=== PATIENT | female | born 1975 | race Hispanic/Latino ===

== ENCOUNTER 2017-12-02 17:29 | Emergency (ER) | payer SELFPAY ==
[2017-12-02] MEDS ORDERED: IBUPROFEN 400 MG TAB ONE (18:27)
--- NOTE | 2017-12-02 19:00 | RAD REPORT ---
EXAM DESCRIPTION: RAD - Ankle Right 3 View - 12/02/2017 6:52 pm CLINICAL HISTORY: Right ankle pain status post injury FINDINGS: No fracture or dislocation is seen. Soft tissue swelling is present
--- NOTE | 2017-12-02 19:02 | RAD REPORT ---
EXAM DESCRIPTION: RAD - Foot Right 3 View - 12/02/2017 6:49 pm CLINICAL HISTORY: Right foot pain status post injury FINDINGS: No fracture or dislocation is seen
--- NOTE | 2017-12-02 19:16 | ER ---
Nurse's Notes [facility] Name: Daisha Dawkins Age: 42 yrs Sex: Female : 1975 Arrival Date: 12/02/2017 Time: 17:33 Bed 15 Private MD: Diagnosis: Sprain of ankle-Right Presentation: 12/02 17:36 Presenting complaint: Patient states: "rolled my ankle yesterday". pt c/o swelling and aa5 pain to right ankle. Transition of care: patient was not received from another setting of care. Onset of symptoms was November 2017. Risk Assessment: Do you want to hurt yourself or someone else? Patient reports no desire to harm self or others. Initial Sepsis Screen: Does the patient meet any 2 criteria? No. Patient's initial sepsis screen is negative. Does the patient have a suspected source of infection? No. Patient's initial sepsis screen is negative. Care prior to arrival: None. 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 - Social history:: Smoking status: Patient/guardian denies using tobacco. - Ebola Screening: : No symptoms or risks identified at this time. Screenin:00 Abuse screen: Denies threats or abuse. Denies injuries from another. Nutritional jl7 screening: No deficits noted. Tuberculosis screening: No symptoms or risk factors identified. Fall Risk Fall in past 12 months (25 points). Total Pandey Fall Scale indicates Low Risk Score (25-44 pts). Fall prevention measures have been instituted. Side Rails Up X 2 Placed close to Nursing Station Frequent Obs/Assesments occuring As available Patient and Family Educated on Fall Prevention Program and strategies. Assessment: 18:00 General: Appears in no apparent distress. uncomfortable, Behavior is calm, cooperative, jl7 appropriate for age. Pain: Complains of pain in right ankle Pain currently is 8 out of 10 on a pain scale. Neuro: Level of Consciousness is awake, alert, obeys commands. Cardiovascular: Patient's skin is warm and dry. Respiratory: Airway is patent Respiratory effort is even, unlabored, Respiratory pattern is regular, symmetrical. Derm: Skin is pink, warm \\T\\ dry. 19:20 Reassessment: Patient appears in no apparent distress at this time. Patient and/or tl2 family updated on plan of care and expected duration. Pain level reassessed. Patient is alert, oriented x 3, equal unlabored respirations, skin warm/dry/pink. Pt verbalized understanding of discharge instructions, need for follow up, prescription usage and use of air cast and crutches. Vital Signs: 17:38 BP 124 / 81; Pulse 69; Resp 16 S; Temp 98.4(TE); Pulse Ox 97% on R/A; Weight 89.36 kg aa5 (R); Height 5 ft. 7 in. (170.18 cm) (R); Pain 7/10; 17:38 Body Mass Index 30.85 (89.36 kg, 170.18 cm) aa5 ED Course: 17:33 Patient arrived in ED. ds1 17:37 Triage completed. aa5 17:37 Arm band placed on. aa5 17:40 Aydin Maki, RN is Primary Nurse. jl7 17:43 Aashish Senior PA is PHCP. cp 17:43 Virgil Pro MD is Attending Physician. cp 18:00 Patient has correct armband on for positive identification. Bed in low position. Call jl7 light in reach. Side rails up X 1. Pulse ox on. NIBP on. 18:00 No provider procedures requiring assistance completed. jl7 18:48 XRAY Foot RIGHT 3 View In Process Unspecified. EDMS 18:48 XRAY Ankle RIGHT 3 view In Process Unspecified. EDMS 18:59 Primary Nurse role handed off by Aydin Maki RN jl7 19:13 Korey Chadwick MD is Referral Physician. cp 19:20 Raeann Zapata RN is Primary Nurse. tl2 19:20 Patient did not have IV access during this emergency room visit. tl2 Administered Medications: 18:23 Drug: Ibuprofen 800 mg Route: PO; jl7 19:30 Follow up: Response: No adverse reaction; Pain is decreased tl2 Outcome: 19:15 Discharge ordered by . cp 19:20 Discharged to home via wheelchair, with family. tl2 19:20 Condition: stable 19:20 Discharge instructions given to patient, Instructed on discharge instructions, follow up and referral plans. medication usage, crutch walking, Demonstrated understanding of instructions, follow-up care, medications, crutch walking, splint care, Prescriptions given X 1. 19:31 Patient left the ED. tl2 Signatures: Dispatcher [employer] [facility] Priscilla Toribio ds1 Paola Reid RN RN aa5 Aashish Senior PA PA cp Knox, Taylor RN RN tl2 Aydin Maki RN RN jl7
--- NOTE | 2017-12-02 19:16 | EDPHYS ---
Physician Documentation [facility] Name: Daisha Dawkins Age: 42 yrs Sex: Female : 1975 Arrival Date: 12/02/2017 Time: 17:33 Bed 15 Private MD: ED Physician Virgil Pro HPI: 12/02 18:20 This 42 yrs old Female presents to ER via Wheelchair with complaints of Foot cp Swelling. 18:20 The patient presents with an injury, pain, that is acute. The complaints affect the cp right ankle and right foot. 18:20 Context: The problem was sustained at home, resulted from a mis-step, the patient can cp fully bear weight, the patient is able to ambulate. Onset: The symptoms/episode began/occurred yesterday. Associated signs and symptoms: Pertinent positives: tingling, Pertinent negatives calf tenderness, fever, warmth. 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 - Social history:: Smoking status: Patient/guardian denies using tobacco. - Ebola Screening: : No symptoms or risks identified at this time. ROS: 18:25 Constitutional: Negative for body aches, chills, fever. cp 18:25 Eyes: Negative for injury, pain, redness, and discharge. cp 18:25 Cardiovascular: Negative for chest pain, palpitations. 18:25 Respiratory: Negative for cough, shortness of breath, wheezing. 18:25 Abdomen/GI: Negative for abdominal pain, nausea, vomiting, and diarrhea. 18:25 MS/extremity: Positive for pain, paresthesias, swelling, tenderness, of the right ankle and right foot. 18:25 Skin: Negative for cellulitis, rash. 18:25 All other systems are negative. Exam: 18:30 Constitutional: The patient appears in no acute distress, alert, awake, non-toxic, well cp developed, well nourished. 18:30 Head/Face: Normocephalic, atraumatic. cp 18:30 Eyes: Periorbital structures: appear normal, Conjunctiva: normal, no exudate, no injection, Lids and lashes: appear normal, bilaterally. 18:30 ENT: External ear(s): are unremarkable, Nose: is normal, Mouth: Lips: moist, Oral mucosa: moist, Posterior pharynx: is normal, airway is patent. 18:30 Neck: ROM/movement: is normal, without pain, no range of motions limitations. 18:30 Chest/axilla: Inspection: normal. 18:30 Cardiovascular: Rate: normal. 18:30 Respiratory: the patient does not display signs of respiratory distress, Respirations: normal, no use of accessory muscles, no retractions, no splinting, no tachypnea. 18:30 Abdomen/GI: Exam negative for discomfort, distension, guarding, Inspection: abdomen appears normal. 18:30 Back: pain, is absent, ROM is normal. 18:30 Musculoskeletal/extremity: Extremities: grossly normal except: noted in the right ankle and right foot: ecchymosis, swelling, tenderness, There is no evidence of deformity, Perfusion: the extremity is normally perfused throughout, Tingling of extremity. 18:30 Skin: cellulitis, is not appreciated, no rash present. Vital Signs: 17:38 BP 124 / 81; Pulse 69; Resp 16 S; Temp 98.4(TE); Pulse Ox 97% on R/A; Weight 89.36 kg aa5 (R); Height 5 ft. 7 in. (170.18 cm) (R); Pain 7/10; 17:38 Body Mass Index 30.85 (89.36 kg, 170.18 cm) aa5 Procedures: 19:30 Splinting: Splint applied to right ankle using Air Cast, applied by nurse. Examined by cp me, post splint application: neurovascular intact, Patient tolerated well. 19:30 Crutch training provided to patient and/or family. Return demonstration given. cp MDM: 17:43 Patient medically screened. cp 18:00 Differential diagnosis: dislocation, closed fracture, tendonitis, sprain. cp 19:10 Data reviewed: vital signs, nurses notes, radiologic studies, plain films. cp 19:10 Test interpretation: by ED physician or midlevel provider: plain radiologic studies. cp Counseling: I had a detailed discussion with the patient and/or guardian regarding: the historical points, exam findings, and any diagnostic results supporting the discharge/admit diagnosis, radiology results. Response to treatment: the patient's symptoms have mildly improved after treatment, and as a result, I will discharge patient. 12/02 18:19 Order name: XRAY Foot RIGHT 3 View cp 12/02 18:19 Order name: XRAY Ankle RIGHT 3 view cp 12/02 19:06 Order name: Crutches; Complete Time: 19:30 cp 12/02 19:06 Order name: Aircast Ankle Splint; Complete Time: 19:30 cp 12/02 19:06 Order name: Alex Wrap; Complete Time: 19:30 cp Administered Medications: 18:23 Drug: Ibuprofen 800 mg Route: PO; jl7 19:30 Follow up: Response: No adverse reaction; Pain is decreased tl2 Disposition: 12/03 09:24 Co-signature as Attending Physician, Virgil Pro MD I agree with the assessment and kdr plan of care. Disposition: 12/02/17 19:15 Discharged to Home. Impression: Sprain of ankle - Right. - Condition is Stable. - Discharge Instructions: Ankle Sprain. - Prescriptions for Naprosyn 500 mg Oral Tablet - take 1 tablet by ORAL route 2 times per day take with food; 20 tablet. - Medication Reconciliation Form, Thank You Letter, Antibiotic Education, Prescription Opioid Use form. - Follow up: Korey Chadwick MD; When: 5 - 6 days; Reason: swelling and pain continues. - Problem is new. - Symptoms have improved. Signatures: Dispatcher [employer] EDMS Virgil Pro MD MD kdr Paola Reid RN RN aa5 Aashish Senior PA PA cp Raeann Zapata RN RN tl2 Aydin Maki RN RN jl7 Corrections: (The following items were deleted from the chart) 12/02 19:31 19:15 12/02/2017 19:15 Discharged to Home. Impression: Sprain of ankle - Right. tl2 Condition is Stable. Forms are Medication Reconciliation Form, Thank You Letter, Antibiotic Education, Prescription Opioid Use. Follow up: Korey Chadwick; When: 5 - 6 days; Reason: swelling and pain continues. Problem is new. Symptoms have improved. cp
== END 2017-12-02 19:31 | disposition home or self-care (01) ==
LOC: ER 17:29
DX: S93.401A Sprain of unspecified ligament of right ankle, initial encounter (principal); X58.XXXA Exposure to other specified factors, initial encounter; Y93.89 Activity, other specified; Y92.009 Unspecified place in unspecified non-institutional (private) residence as the place of occurrence of the external cause
CPT/HCPCS: 99284

== ENCOUNTER 2020-04-17 22:31 | Emergency (ER) | payer SELFPAY ==
--- OUTSIDE RECORDS SUMMARY | 2020-04-17 22:32 | XMS REPORT | Continuity of Care Document ---
:1975 Author Organization [facility] t Address [facility] [place] [id number] Care Team Providers Name Role Phone Unavailable Unavailable Unavailable Problems This patient has no known problems. Allergies, Adverse Reactions, Alerts This patient has no known allergies or adverse reactions. Medications This patient has no known medications. Procedures This patient has no known procedures. Results This patient has no known results.
[2020-04-18 00:07] LABS: Absolute Lymphocytes (CBC) 1.2 K/uL (0.7-4.9); Basophils % 0.4 % (0-1.3); Hematocrit 40.9 % (36.0-45.0); Lymphocytes % 9.4 % (15.3-44.8); MPV 8.9 fL (7.6-11.3); RBC Red Blood Cell Count 4.63 M/uL (3.86-4.86)
[2020-04-18 00:08] LABS: Protime INR 1.04
[2020-04-18] MEDS ORDERED: NA CHLORIDE 0.9% 1,000 ML ONE (00:10)
[2020-04-18 00:18] LABS: Urine Blood 1+ (NEG); Urine Glucose NEGATIVE (NEG); Urine Protein NEGATIVE (NEG); Urine Specific Gravity 1.015 (1.005-1.030)
[2020-04-18 00:35] LABS: ALT/SGPT 51 U/L (12-78); Albumin 3.6 g/dL (3.4-5.0); Alkaline Phosphatase 95 U/L (45-117); BUN Blood Urea Nitrogen 9 mg/dL (7-18); Bicarbonate 24 mmol/L (21-32); Bilirubin Direct < 0.1 mg/dL (0-0.2); Bilirubin Total 0.4 mg/dL (0.2-1.0); Glucose Level 108 mg/dL (74-106); Lipase 121 U/L (73-393); NT PRO-BNP 40 pg/mL (<125); Protein, Total 8.1 g/dL (6.4-8.2); Sodium Level 143 mmol/L (136-145); Troponin (Emerg Dept Use Only) < 0.02 ng/mL (0.0-0.045)
[2020-04-18 00:36] LABS: AST/SGOT 37 U/L (15-37); Magnesium 2.1 mg/dL (1.8-2.4); Potassium 3.7 mmol/L (3.5-5.1)
[2020-04-18 01:47] LABS: SARS-COV-2 RT PCR NEGATIVE (NEGATIVE)
[2020-04-18] MEDS ORDERED: dexAMETHasone 10 MG/ML VIAL ONE (01:56)
[2020-04-18] MEDS ORDERED: AZITHROMYCIN 500 MG INJ IVPB ONE (01:56)
[2020-04-18] MEDS ORDERED: METHYLPREDNISOLONE 125 MG INJ ONE (01:56)
[2020-04-18] MEDS ORDERED: FAMOTIDINE 20 MG/2 ML VIAL IV ONE (01:57)
[2020-04-18] MEDS ORDERED: NA CHLORIDE 0.9% 250 ML ONE (01:57)
[2020-04-18] MEDS ORDERED: CEFTRIAXONE/SWI 1gm 1 GM/10 ML SYR ONE (01:57)
--- NOTE | 2020-04-18 02:05 | EDPHYS ---
Physician Documentation [facility] Name: Daisha Dawkins Age: 44 yrs Sex: Female : 1975 Arrival Date: 04/17/2020 Time: 22:32 Bed 4 Private MD: ED Physician Aashish hTomson HPI: 04/17 23:22 This 44 yrs old Female presents to ER via Ambulatory with complaints of stephy Shortness Of Breath. 23:22 The patient has shortness of breath at rest, with light activity. Onset: The stephy symptoms/episode began/occurred 1 day(s) ago. Duration: The symptoms are continuous, and are steadily getting worse. The patient's shortness of breath has no apparent modifying factors. Associated signs and symptoms: Pertinent positives: chest pain, non-productive cough. Severity of symptoms: At their worst the symptoms were mild in the emergency department the symptoms are unchanged. The patient has not experienced similar symptoms in the past. 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 - Social history:: Smoking status: Patient denies any tobacco usage or history of. - Family history:: not pertinent. ROS: 23:22 Constitutional: Negative for fever, chills, and weight loss, Eyes: Negative for injury, stephy pain, redness, and discharge, ENT: Negative for injury, pain, and discharge, Neck: Negative for injury, pain, and swelling, Cardiovascular: Negative for chest pain, palpitations, and edema, Abdomen/GI: Negative for abdominal pain, nausea, vomiting, diarrhea, and constipation, Back: Negative for injury and pain, : Negative for injury, bleeding, discharge, and swelling, MS/Extremity: Negative for injury and deformity, Skin: Negative for injury, rash, and discoloration, Neuro: Negative for headache, weakness, numbness, tingling, and seizure, Psych: Negative for depression, anxiety, suicide ideation, homicidal ideation, and hallucinations, Allergy/Immunology: Negative for hives, rash, and allergies, Endocrine: Negative for neck swelling, polydipsia, polyuria, polyphagia, and marked weight changes. 23:22 Respiratory: Positive for cough, with no reported sputum. Exam: 23:22 Constitutional: This is a well developed, well nourished patient who is awake, alert, stephy and in no acute distress. Head/Face: Normocephalic, atraumatic. Eyes: Pupils equal round and reactive to light, extra-ocular motions intact. Lids and lashes normal. Conjunctiva and sclera are non-icteric and not injected. Cornea within normal limits. Periorbital areas with no swelling, redness, or edema. ENT: Nares patent. No nasal discharge, no septal abnormalities noted. Tympanic membranes are normal and external auditory canals are clear. Oropharynx with no redness, swelling, or masses, exudates, or evidence of obstruction, uvula midline. Mucous membranes moist. Neck: Trachea midline, no thyromegaly or masses palpated, and no cervical lymphadenopathy. Supple, full range of motion without nuchal rigidity, or vertebral point tenderness. No Meningismus. Chest/axilla: Normal chest wall appearance and motion. Nontender with no deformity. No lesions are appreciated. Cardiovascular: Regular rate and rhythm with a normal S1 and S2. No gallops, murmurs, or rubs. Normal PMI, no JVD. No pulse deficits. Abdomen/GI: Soft, non-tender, with normal bowel sounds. No distension or tympany. No guarding or rebound. No evidence of tenderness throughout. Back: No spinal tenderness. No costovertebral tenderness. Full range of motion. Skin: Warm, dry with normal turgor. Normal color with no rashes, no lesions, and no evidence of cellulitis. MS/ Extremity: Pulses equal, no cyanosis. Neurovascular intact. Full, normal range of motion. Neuro: Awake and alert, GCS 15, oriented to person, place, time, and situation. Cranial nerves II-XII grossly intact. Motor strength 5/5 in all extremities. Sensory grossly intact. Cerebellar exam normal. Normal gait. Psych: Awake, alert, with orientation to person, place and time. Behavior, mood, and affect are within normal limits. 23:22 Respiratory: mild respiratory distress is noted, Respirations: normal, Breath sounds: are clear throughout. 23:22 Abdomen/GI: Inspection: abdomen appears normal, Bowel sounds: normal, Palpation: nontender, Liver: no appreciated palpable abnormalities, Hernia: not appreciated. 23:49 ECG was reviewed by the Attending Physician. [facility] Vital Signs: 23:45 BP 134 / 101; Pulse 98; Resp 18; Pulse Ox 100% on R/A; rv 02/04 00:00 BP 125 / 85; Pulse 88; Resp 17; Pulse Ox 100% on R/A; rv 00:30 BP 122 / 80; Pulse 88; Resp 17; Pulse Ox 100% on R/A; rv 01:00 BP 134 / 80; Pulse 96; Resp 16; Pulse Ox 100% ; rv 02:19 BP 113 / 76; Pulse 90; Resp 18; Pulse Ox 98% on R/A; MDM: 04/17 23:15 Patient medically screened. stephy 23:25 Differential diagnosis: Anemia Bronchitis CHF exacerbation, Chronic Obstructive stephy Pulmonary Disease pneumonia, pulmonary edema, reactive airway disease. Antibiotic administration: Not indicated. The patient's Wells Deep Vein Thrombosis Score was calculated as follows: No Risks (0 Pts). The patient's pulmonary embolism risk score was calculated as follows: No Risks (0 Pts). Immunization status:. Data reviewed: vital signs, nurses notes, lab test result(s), EKG, radiologic studies, CT scan, plain films. Data interpreted: front desk monitor: rate is 85 beats/min, rhythm is regular, Pulse oximetry: on room air is 100 %. Test interpretation: by ED physician or midlevel provider: ECG, plain radiologic studies. Counseling: I had a detailed discussion with the patient and/or guardian regarding: the historical points, exam findings, and any diagnostic results supporting the discharge/admit diagnosis, lab results, radiology results, the need for outpatient follow up. 04/17 23:22 Order name: Basic Metabolic Panel [facility] 04/17 23:22 Order name: CBC with Diff [facility] 04/17 23:22 Order name: LFT's [facility] 04/17 23:22 Order name: Magnesium [facility] 04/17 23:22 Order name: NT PRO-BNP [facility] 04/17 23:22 Order name: PT-INR [facility] 04/17 23:22 Order name: Troponin (emerg Dept Use Only) [facility] 04/17 23:22 Order name: Lipase; Complete Time: 00:52 [facility] 04/17 23:22 Order name: Basic Metabolic Panel; Complete Time: 00:52 [facility] 04/17 23:22 Order name: CBC with Automated Diff; Complete Time: 00:19 [facility] 04/17 23:22 Order name: Liver (Hepatic) Function; Complete Time: 00:52 [facility] 04/17 23:22 Order name: Magnesium; Complete Time: 00:52 [facility] 04/17 23:22 Order name: NT PRO-BNP; Complete Time: 00:52 [facility] 04/17 23:22 Order name: XRAY Chest (1 view) [facility] 04/17 23:22 Order name: CT Chest For PE Angio [facility] 04/17 23:22 Order name: Protime (+INR); Complete Time: 00:19 [facility] 04/17 23:22 Order name: Troponin (Emerg Dept Use Only); Complete Time: 00:52 [facility] 04/17 23:52 Order name: Urine Dipstick--Ancillary (enter results) [facility] 04/17 23:52 Order name: Urine --Ancillary (enter results) [facility] 04/18 01:26 Order name: Blood Culture Adult (2) [facility] 04/18 01:47 Order name: COVID-19/FLU A+B [facility] 04/17 23:22 Order name: EKG; Complete Time: 23:23 [facility] 04/17 23:22 Order name: Cardiac monitoring; Complete Time: 23:52 [facility] 04/17 23:22 Order name: EKG - Nurse/Tech; Complete Time: 23:52 [facility] 04/17 23:22 Order name: IV Saline Lock; Complete Time: 23:52 [facility] 04/17 23:22 Order name: Labs collected and sent; Complete Time: 23:52 [facility] 04/17 23:22 Order name: O2 Per Protocol; Complete Time: 23:52 [facility] 04/17 23:22 Order name: O2 Sat Monitoring; Complete Time: 23:52 [facility] 04/17 23:22 Order name: Urine Dipstick-Ancillary (obtain specimen); Complete Time: 23:48 [facility] 04/17 23:22 Order name: Urine Test (obtain specimen); Complete Time: 23:48 [facility] EC:49 Rate is 91 beats/min. Rhythm is regular. QRS Harrah is Normal. IN interval is normal. QRS stephy interval is normal. QT interval is normal. No Q waves. T waves are Normal. No ST changes noted. Clinical impression: Normal ECG and No evidence of ischemia. Interpreted by me. Reviewed by me. Administered Medications: 23:52 Drug: NS 0.9% 1000 ml Route: IV; Rate: 1 bolus; Site: right antecubital; 04/18 03:18 Follow up: Response: No adverse reaction; IV Status: Completed infusion 01:31 Not Given (Duplicate Order): predniSONE 20 mg PO once stephy 01:55 Drug: SOLU-Medrol 125 mg Route: IVP; Site: right antecubital; 02:20 Follow up: Response: No adverse reaction 01:57 Drug: Rocephin 1 grams Route: IV; Rate: per protocol; Site: right antecubital; 02:20 Follow up: Response: No adverse reaction; IV Status: Completed infusion 01:59 Drug: Decadron - Dexamethasone 10 mg Route: IVP; Site: right antecubital; 02:20 Follow up: Response: No adverse reaction 02:01 Drug: Pepcid 20 mg Route: IVP; Site: right antecubital; 02:20 Follow up: Response: No adverse reaction 02:03 Drug: Zofran (Ondansetron) 4 mg Route: IVP; Site: right antecubital; 02:20 Follow up: Response: No adverse reaction; Nausea is decreased 02:05 Drug: Zithromax 500 mg Route: IVPB; Infused Over: 1 hrs; Site: right antecubital; 03:17 Follow up: Response: No adverse reaction; IV Status: Completed infusion Disposition: 04/18/20 02:05 Discharged to Home. Impression: Acute upper respiratory infection, unspecified, Dyspnea, Vomiting. - Condition is Stable. - Discharge Instructions: Shortness of Breath, Upper Respiratory Infection, Adult, Cool Mist Vaporizer, Shortness of Breath, Rxka-[id number], Upper Respiratory Infection, Adult, Agje-gk-Vydm, Cough, Adult, Rofr-gs-Cbbc, Aspirin and Your Heart. - Prescriptions for dexamethasone 2 mg Oral tablet - take 1 tablet by ORAL route 2 times per day; 10 tablet. Pepcid 20 mg Oral Tablet - take 1 tablet by ORAL route every 12 hours for 30 days; 60 tablet. Albuterol Sulfate 90 mcg/actuation - inhale 1-2 puff by INHALATION route every 4-6 hours; 1 Inhaler. Zithromax 500 mg Oral Tablet - take 1 tablet by ORAL route once daily for 5 days; 5 tablet. Zofran 4 mg Oral Tablet - take 1 tablet by ORAL route every 12 hours As needed; 20 tablet. - Medication Reconciliation Form, Thank You Letter, Antibiotic Education, Prescription Opioid Use form. - Follow up: Private Physician; When: 2 - 3 days; Reason: Recheck today's complaints, Continuance of care, Re-evaluation by your physician. Follow up: Michael Avila; When: 2 - 3 days; Reason: Recheck today's complaints, Re-evaluation by your physician. - Problem is new. - Symptoms have improved. Signatures: Dispatcher [employer] EDMO Talib Alcala RN RN sg Anderson, Corey, MD MD cha Habalo, Winsy, RN RN Corrections: (The following items were deleted from the chart) 00:40 02/03 23:23 CORONAVIRUS+MR.LAB.BRZ ordered. [facility] 04/18 01:30 01:27 CORONAVIRUS+MR.LAB.BRZ ordered. [facility] 01:32 01:27 Influenza Screen (A \T\ B)+BA.LAB.BRZ ordered. [facility] EDMO 03:17 02:05 04/18/2020 02:05 Discharged to Home. Impression: Acute upper respiratory wh infection, unspecified; Dyspnea; Vomiting. Condition is Stable. Discharge Instructions: Shortness of Breath, Upper Respiratory Infection, Adult, Cool Mist Vaporizer, Shortness of Breath, Ecme-ch-Mncz, Upper Respiratory Infection, Adult, Blmx-or-Zezk, Cough, Adult, Avca-be-Hrtj, Aspirin and Your Heart. Prescriptions for dexamethasone 2 mg Oral tablet - take 1 tablet by ORAL route 3 times per day; 15 tablet, Pepcid 20 mg Oral Tablet - take 1 tablet by ORAL route every 12 hours for 30 days; 60 tablet, Albuterol Sulfate 90 mcg/actuation - inhale 1-2 puff by INHALATION route every 4-6 hours; 1 Inhaler, Zithromax 500 mg Oral Tablet - take 1 tablet by ORAL route once daily for 5 days; 5 tablet, Zofran 4 mg Oral Tablet - take 1 tablet by ORAL route every 12 hours As needed; 20 tablet. and Forms are Medication Reconciliation Form, Thank You Letter, Antibiotic Education, Prescription Opioid Use. Follow up: Private Physician; When: 2 - 3 days; Reason: Recheck today's complaints, Continuance of care, Re-evaluation by your physician. Follow up: Michael Avila; When: 2 - 3 days; Reason: Recheck today's complaints, Re-evaluation by your physician. Problem is new. Symptoms have improved. stephy
--- NOTE | 2020-04-18 02:05 | ER ---
Nurse's Notes [facility] Name: Daisha Dawkins Age: 44 yrs Sex: Female : 1975 Arrival Date: 04/17/2020 Time: 22:32 Bed 4 Private MD: Diagnosis: Acute upper respiratory infection, unspecified;Dyspnea;Vomiting Presentation: 04/17 22:47 Chief complaint: Patient states: Having shortness of breath, reports worsens with sg ambulation, unsure of any fever at home, denies chills for triage, no other symptoms reported at this time. Coronavirus screen: shortness of breath, Client presents with at least one sign or symptom that may indicate coronavirus-19. Standard/surgical mask placed on the client. Provider contacted for isolation considerations. Ebola Screen: Patient negative for fever greater than or equal to 101.5 degrees Fahrenheit, and additional compatible Ebola Virus Disease symptoms Patient denies exposure to infectious person. Patient denies travel to an Ebola-affected area in the 21 days before illness onset. No symptoms or risks identified at this time. Initial Sepsis Screen: Does the patient meet any 2 criteria? No. Patient's initial sepsis screen is negative. Does the patient have a suspected source of infection? No. Patient's initial sepsis screen is negative. Risk Assessment: Do you want to hurt yourself or someone else? Patient reports no desire to harm self or others. Onset of symptoms was April 17, 2020. Care prior to arrival: None. Transition of care: patient was not received from another setting of care. 22:47 Method Of Arrival: Ambulatory sg 22:47 Acuity: AILYN 3 sg Triage Assessment: 23:00 Respiratory: Onset: The symptoms/episode began/occurred this morning, the patient wh reports symptoms have resolved. [employer]: 04/18 00:00 LMP N/A - Unknown wh Historical: - Allergies: 04/17 22:49 No Known Allergies; sg - PMHx: 22:49 None; sg - PSHx: 22:49 Cholecystectomy; Tubal ligation; sg - Immunization history:: Adult Immunizations up to date. - Social history:: Smoking status: Patient denies any tobacco usage or history of. - Family history:: not pertinent. Screenin:00 Abuse screen: Denies threats or abuse. Denies injuries from another. Nutritional wh screening: No deficits noted. Tuberculosis screening: No symptoms or risk factors identified. Fall Risk None identified. Assessment: 23:00 General: Appears in no apparent distress. Behavior is calm, cooperative, appropriate wh for age. Pain: Denies pain. Neuro: Level of Consciousness is awake, alert, obeys commands, Oriented to person, place, time, situation, Appropriate for age. Cardiovascular: Heart tones S1 S2 Rhythm is regular. Respiratory: Reports shortness of breath Airway is patent Respiratory effort is even, unlabored, Respiratory pattern is regular, symmetrical, Breath sounds are clear bilaterally. GI: Abdomen is flat, non-distended, Reports diarrhea, nausea. : No signs and/or symptoms were reported regarding the genitourinary system. EENT: No signs and/or symptoms were reported regarding the EENT system. Derm: Skin is intact, is healthy with good turgor, Skin is pink, warm \T\ dry. normal. Musculoskeletal: Circulation, motion, and sensation intact. 04/18 00:30 Reassessment: Patient appears in no apparent distress at this time. No changes from previously documented assessment. Patient and/or family updated on plan of care and expected duration. Pain level reassessed. Patient is alert, oriented x 3, equal unlabored respirations, skin warm/dry/pink. 02:00 Reassessment: Patient appears in no apparent distress at this time. Patient and/or family updated on plan of care and expected duration. Pain level reassessed. Patient is alert, oriented x 3, equal unlabored respirations, skin warm/dry/pink. 03:15 Reassessment: Patient appears in no apparent distress at this time. Patient and/or family updated on plan of care and expected duration. Pain level reassessed. Patient is alert, oriented x 3, equal unlabored respirations, skin warm/dry/pink. Vital Signs: 04/17 23:45 BP 134 / 101; Pulse 98; Resp 18; Pulse Ox 100% on R/A; rv 04/18 00:00 BP 125 / 85; Pulse 88; Resp 17; Pulse Ox 100% on R/A; rv 00:30 BP 122 / 80; Pulse 88; Resp 17; Pulse Ox 100% on R/A; rv 01:00 BP 134 / 80; Pulse 96; Resp 16; Pulse Ox 100% ; rv 02:19 BP 113 / 76; Pulse 90; Resp 18; Pulse Ox 98% on R/A; ED Course: 04/17 22:32 Patient arrived in ED. cl3 22:47 Arm band placed on. sg 22:49 Triage completed. sg 22:57 Sundeep Matt, RN is Primary Nurse. 23:00 Patient has correct armband on for positive identification. Placed in gown. Bed in low wh position. Call light in reach. Side rails up X 1. senior support analyst on. Pulse ox on. NIBP on. 23:00 No provider procedures requiring assistance completed. Inserted saline lock: 20 gauge wh in right antecubital area, using aseptic technique. Blood collected. 23:15 Aashish Thomson MD is Attending Physician. stephy 23:44 XRAY Chest (1 view) In Process Unspecified. EDMS 0204 01:03 CT Chest For PE Angio In Process Unspecified. EDMS 02:05 Michael Avila MD is Referral Physician. stephy 03:17 IV discontinued, intact, bleeding controlled, No redness/swelling at site. Administered Medications: 04/17 23:52 Drug: NS 0.9% 1000 ml Route: IV; Rate: 1 bolus; Site: right antecubital; 04/18 03:18 Follow up: Response: No adverse reaction; IV Status: Completed infusion 01:31 Not Given (Duplicate Order): predniSONE 20 mg PO once [facility] 01:55 Drug: SOLU-Medrol 125 mg Route: IVP; Site: right antecubital; 02:20 Follow up: Response: No adverse reaction 01:57 Drug: Rocephin 1 grams Route: IV; Rate: per protocol; Site: right antecubital; 02:20 Follow up: Response: No adverse reaction; IV Status: Completed infusion 01:59 Drug: Decadron - Dexamethasone 10 mg Route: IVP; Site: right antecubital; 02:20 Follow up: Response: No adverse reaction 02:01 Drug: Pepcid 20 mg Route: IVP; Site: right antecubital; 02:20 Follow up: Response: No adverse reaction 02:03 Drug: Zofran (Ondansetron) 4 mg Route: IVP; Site: right antecubital; 02:20 Follow up: Response: No adverse reaction; Nausea is decreased 02:05 Drug: Zithromax 500 mg Route: IVPB; Infused Over: 1 hrs; Site: right antecubital; 03:17 Follow up: Response: No adverse reaction; IV Status: Completed infusion Outcome: 02:05 Discharge ordered by . stephy 03:17 Discharged to home ambulatory. 03:17 Condition: stable 03:17 Discharge instructions given to patient, Instructed on discharge instructions, follow up and referral plans. medication usage, POC Demonstrated understanding of instructions, follow-up care, medications, POC Prescriptions given X X5 03:18 Patient left the ED. Signatures: Dispatcher [employer] EDMS Talib Alcala RN RN sg Anderson, Corey, MD MD cha Habalo, Winsy RN JESUS Santy Banegas RN RN Go Irvin cl3
[2020-04-18] MEDS ORDERED: ONDANSETRON 4 MG/2 ML VIAL ONE (02:12)
[2020-04-18 03:35] VITALS: BP 113/76; O2SAT 98
--- NOTE | 2020-04-18 07:43 | RAD REPORT ---
EXAM DESCRIPTION: [facility] Single View04/17/2020 11:44 pm CLINICAL HISTORY: Shortness of breath COMPARISON: none FINDINGS: The lungs appear clear of acute infiltrate. The heart is normal size IMPRESSION: No acute abnormalities displayed
--- NOTE | 2020-04-18 13:03 | RAD REPORT ---
EXAM DESCRIPTION: CT - Chest For Pe Angio - 04/18/2020 6:10 am CLINICAL HISTORY: The patient is 44 years old and is Female; Chest pain;Dyspnea TECHNIQUE: Axial computed tomographic angiography images of the chest with intravenous contrast. T his CT exam was performed using one or more of the following dose reduction techniques: automated e xposure control, adjustment of the mA and/or kV according to patient size, and/or use of iterative re construction technique. MIP reconstructed images were created and reviewed. Oblique reformatted images were created and reviewed. DLP: 390 mGy*cm COMPARISON: None. FINDINGS: PULMONARY ARTERIES: Unremarkable. No pulmonary embolism. AORTA: No acute findings. No thoracic aortic aneurysm. LUNGS: Mild interlobular septal thickening and groundglass opacities. PLEURAL SPACE: Unremarkable. No significant effusion. No pneumothorax. HEART: Unremarkable. No cardiomegaly. No significant pericardial effusion. No evidence of RV dysfunction. BONES/JOINTS: No acute fracture. No dislocation. SOFT TISSUES: Unremarkable. LYMPH NODES: Unremarkable. No enlarged lymph nodes. IMPRESSION: 1. No pulmonary embolism. 2. Mild interstitial edema. Infectious process could have similar imaging characteristics. Electronically signed by: Guerrero Leger DO 04/18/2020 1:17 AM [employer] Due to temporary technical issues with the PACS/Fluency reporting system, reports are being signed by the in house radiologists without review as a courtesy to insure prompt reporting. The interpreting radiologist is fully responsible for the content of the report.
== END 2020-04-18 03:18 | disposition home or self-care (01) ==
LOC: ER 22:31
DX: J06.9 Acute upper respiratory infection, unspecified (principal); R11.10 Vomiting, unspecified; Z20.822 Contact with and (suspected) exposure to COVID-19
CPT/HCPCS: 0240U; 36415; 71045; 71275; 80048; 80076; 81003; 81025; 83690; 83735; 83880; 84484; 85025; 85610; 87040; 87205; 93005; 96361; 96365; 96375; 99284; J0456; J0696; J1100; J2405; J2930; J7050; Q9967

== ENCOUNTER 2024-07-29 14:39 | Emergency (ER) | payer OTHER, SELFPAY ==
--- OUTSIDE RECORDS SUMMARY | 2024-07-29 14:42 | XMS REPORT | Continuity of Care Document ---
Author Name Unknown Address [address] [facility] [address] [place] [address] [facility] Address [address] [facility] [place] [address] Care Team Providers Care Reimbursement Specialist Name Role Phone Nery Daly Primary Care Physician Un available AZAEL DOMINGUEZ Attending Clinician ELPIDIO May Attending Clinician Unavailable MARCIAL JACKSON Attending Clinician Unavailable SURINDER YOUNG Attending Clinician Unavailab Regina MD Attending Clinician Unavailab coleman LINDSEY Attending Clinician Unavailable DIANNE LIU Attending Clinician Unavailable DONNA KENNY Attending Clinician Unavailable Donna Ga Attending Clinician [phone] DONNA KENNY Admitting Clinician Unavailable Payers Payer Name Policy Type Policy Number Effective Date Expirati on Date Source [employer] MP [employer] 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 ON STAND 9 [id number] 2022 00:00:00 [employer] 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[employer] OUT OF NETWORK [id number] 2022 00:00:00 Problems Condition Name Condition Details Condition Category Status Onset Date Resolution Date Last Treatment Date Treating Clinician Comments Source Screening examinatio n for STD (sexually transmitte d disease) Screening examinatio n for STD (sexually transmitte d disease) Disease Active 2017-03 00:00: 00 [facility] History of bilateral tubal ligation History of bilateral tubal ligation Disease Active 2017-03 00:00: 00 [facility] BMI 30.0-30.9, adult BMI 30.0-30.9, adult Disease Active 2017-03 00:00: 00 [facility] Obesity, unspecifie d classifica tion, unspecifie d obesity type, unspecifie d whether serious comorbidit y present Obesity, unspecifie d classifica tion, unspecifie d obesity type, unspecifie d whether serious comorbidit y present Disease Active 2017-03 00:00: 00 [facility] Allergies, Adverse Reactions, Alerts Allergy Name Allergy Type Status Severity Reaction(s) Onset Date Inactive Date Treating Clinician Comments Source NO KNOWN ALLERGIE S Drug Class Active [facility] Social History Social Habit Start Date Stop Date Quantity Comments Source Sexual orientation Aaron saludmarcus Sammi - External Alcohol intake 2022-12-10 00:00:00 2022-12-10 00:00:00 Lifetime non-drinker (finding) Ally Chapa - External History of Social function 2022-12-10 00:00:00 2022-12-10 00:00:00 Ally Chapa - External Tobacco use and exposure 2022-12-08 00:00:00 2022-12-08 00:00:00 Smokeless tobacco non-user Ally Chapa - External Sex Ass[birth year] At 1975 00:00:00 1975 00:00:00 Ally Chapa - External Smoking Status Start Date Stop Date Source Never smoked tobacco Ally Chapa - External Medications Ordered Medication Name Filled Medication Name Start Date Stop Date Current Medication? Ordering Clinician Indication Dosage Frequency Signature (SIG) Comments Components Source ondansetron (ZOFRAN (PF)) injection 4 mg 08-18 19:15: 00 08-18 19:27 :00 No 4mg 4 mg, Slow IV Push, ONCE, 1 dose, On Wed08/18/22 at 1415, BAR [facility] FENTanyl PF (SUBLIMAZE (PF)) injection 25 mcg 08-18 19:15: 00 08-18 19:27 :00 No 25ug 25 mcg, Slow IV Push, ONCE, 1 dose, On Wed08/18/22 at 1415, STAT [facility] iopamidol (ISOVUE 370-500 mL) injection 70 mL 08-18 18:39: 00 08-18 18:41 :00 No [id number] 70mL 70 mL, Intravenou s, ONCE, 1 dose, On Wed08/18/22 at 1400, Routine [facility] amoxicillin -clavulanat e 875-125 mg per tablet 08-18 00:00: 00 08-29 04:59 :00 No [id number] 1{tbl} Take 1 tablet by mouth every 12 (twelve) hours for 10 days. [facility] Immunizations Ordered Immunization Name Filled Immunization Name Date Status Comments Source Influenza, Injectable, Mdck, Quadrivalent With Preservative Unknown Completed Ally Chapa - External Vital Signs Vital Name Observation Time Observation Value Comments S ource Systolic blood pressure 2022-12-10 18:49:00 118 mm[Hg] Ally Blanco ld - External Diastolic blood pressure 2022-12-10 18:49:00 62 mm[Hg] Ally aparicio - External Heart rate 2022-12-10 18:49:00 74 /min Sandeep Chapa - External Body temperature 2022-12-10 18:49:00 36.61 Zo Ally Chapa - External Respiratory rate 2022-12-10 18:49:00 18 /min Ally Chapa - External Body height 2022-12-10 18:49:00 165.1 cm Jesenia Chapa - External Body weight 2022-12-10 18:49:00 90.039 kg Jesenia Chapa - External BMI 2022-12-10 18:49:00 33.03 kg/m2 Jesenia Chapa - External Oxygen saturation in Arterial blood by Pulse oximetry 2022-12-10 18:49:00 97 /min Ally aparicio - External Systolic blood pressure 2022-08-18 21:01:06 116 mm[Hg] [facility] Diastolic blood pressure 2022-08-18 21:01:06 83 mm[Hg] [facility] Heart rate 2022-08-18 21:01:06 77 /min [facility] Body temperature 2022-08-18 21:01:06 36.89 Zo [facility] Respiratory rate 2022-08-18 21:01:06 18 /min [facility] Body weight 2022-08-18 16:53:00 85.276 kg [facility] BMI 2022-08-18 16:53:00 30.34 kg/m2 [facility] Oxygen saturation in Arterial blood by Pulse oximetry 2022-08-18 16:53:00 99 /min [place] [facility] Procedures Procedure Date / Time Performed Performing Clinicia n Source CT ABDOMEN PELVIS W CONTRAST 2022-08-18 18:48:00 Donna Kenny [facility] LIPASE 2022-08-18 17:35:00 Donna Kenny [facility] COMP. METABOLIC PANEL ([id number]) 2022-08-18 17:35:00 Donna Kenny [facility] CBC WITH DIFF 2022-08-18 17:35:00 Donna Kenny [facility] URINALYSIS 2022-08-18 17:35:00 Donna Kenny [facility] ASSIGNMENT OF BENEFITS 2022-08-18 17:09:31 Docto r Unassigned, [place] [facility] NOTICE OF PRIVACY PRACTICES 2022-08-18 16:44:22 Doctor Unassigned, [place] [facility] CONSENT/REFUSAL FOR DIAGNOSIS AND TREATMENT 2022-08-18 16:43:43 Doctor Unassigned, [place] [facility] Encounters Start Date/Time End Date/Time Encounter Type Admission Type Attending [facility] Care Facility Care Department Encounter ID Source 2023-02-09 00:00:00 2023-02-09 00:00:00 Outpatient AZAEL DOMINGUEZ [id number] Ally Chapa 2023-02-03 10:45:00 2023-02-03 10:45:00 Outpatient ALLY MCCRARY [id number] Ally Chapa 2023-02-02 15:00:00 2023-02-02 15:00:00 Outpatient ELPIDIO CONN [id number] Ally [facility] 2023-01-29 11:30:00 2023-01-29 11:30:00 Outpatient MARCIAL JACKSON [facility] [id number] [facility] 2023-01-08 00:00:00 2023-01-08 00:00:00 Outpatient PAWAN DOMINGUEZAN [facility] [id number] [facility] 2023-01-06 11:15:00 2023-01-06 11:15:00 Outpatient ALLY MCCRARY [id number] Ally [facility] 2022-12-21 08:00:00 2022-12-21 08:00:00 Outpatient HECTORSURINDER [id number] [facility] 2022-12-11 00:00:00 2022-12-11 00:00:00 Outpatient MD ALLY MOMIN [id number] [facility] 2022-12-10 14:30:00 2022-12-10 14:30:00 Outpatient LAB90 ALLY [facility]CRARY [id number] [facility] 2022-12-10 14:00:00 2022-12-10 14:00:00 Outpatient ANGELICAAZAEL [facility]Y [facility] [id number] [facility] 2022-12-10 13:00:00 2022-12-10 13:00:00 Outpatient DIANNE LIU [facility] [id number] [facility] 2022-12-09 09:00:00 2022-12-09 09:00:00 Outpatient AZAEL DOMINGUEZ [id number] [facility] 2022-11-10 15:30:00 2022-11-10 15:30:00 Outpatient ANGELICA AZAEL [facility]Y [facility] [id number] Ally [facility] 2022-08-18 11:55:00 2022-08-18 16:02:00 Emergency X DONNA KENNY [facility] ERT [id number] [facility] 2022-08-18 11:55:00 2022-08-18 16:02:00 Emergency Donna Kenny [facility] [id number] [facility]
--- NOTE | 2024-07-29 15:15 | ER ---
Nurse's Notes [facility] Name: Daisha Dawkins Age: 49 yrs Sex: Female : 1975 Arrival Date: 07/29/2024 Time: 14:39 Bed 9 Private MD: Diagnosis: Allergic contact dermatitis due to plants, except food Presentation: 07/29 14:48 Chief complaint: Patient states: Rash to B arms with itching for 1 week. Started after ll1 clearing a tree with . Coronavirus screen: Client denies travel out of the [place] in the last 14 days. At this time, the client does not indicate any symptoms associated with coronavirus-19. Ebola Screen: Patient denies travel to an Ebola-affected area in the 21 days before illness onset. Initial Sepsis Screen: Does the patient meet any 2 criteria? No. Patient's initial sepsis screen is negative. Does the patient have a suspected source of infection? No. Patient's initial sepsis screen is negative. Risk Assessment: Do you want to hurt yourself or someone else? Patient reports no desire to harm self or others. Onset of symptoms was July 22, 2024. 14:48 Method Of Arrival: Ambulatory ll1 14:48 Acuity: AILYN 4 ll1 Triage Assessment: 14:53 General: Appears uncomfortable, Behavior is calm, cooperative, appropriate for age. ll1 Pain: Complains of pain in right arm and left arm Quality of pain is described as burning. Derm: Reports rash B arms with itching. Historical: - Allergies: 14:52 No Known Allergies; ll1 - Home Meds: 14:52 None [Active]; ll1 - PMHx: 14:52 None; ll1 - PSHx: 14:52 Cholecystectomy; ll1 - Immunization history:: Adult Immunizations up to date. - Infectious Disease History:: Denies. - Social history:: Smoking status: Patient denies any tobacco usage or history of. - Family history:: not pertinent. - Hospitalizations: : No recent hospitalization is reported. Screenin:34 [facility] ED Fall Risk Assessment (Adult) History of falling in the last 3 months, hb including since admission No falls in past 3 months (0 pts) Confusion or Disorientation No (0 pts) Intoxicated or Sedated No (0 pts) Impaired Gait No (0 pts) Mobility Assist Device Used No (0 pt) Altered Elimination No (0 pt) Score/Fall Risk Level 0 - 2 = Low Risk Oriented to surroundings, Maintained a safe environment, Educated pt \T\ family on fall prevention, incl call for assistance when getting out of bed. Abuse screen: Denies threats or abuse. Denies injuries from another. Nutritional screening: No deficits noted. Tuberculosis screening: No symptoms or risk factors identified. Assessment: 15:34 General: Appears in no apparent distress. Behavior is calm, cooperative. Neuro: GCS 15. hb Cardiovascular: Patient's skin is warm and dry. Respiratory: Respiratory effort is even, unlabored, Respiratory pattern is regular, symmetrical. Derm: Rash noted that is itchy, papular. Vital Signs: 14:48 BP 128 / 88; Pulse 77; Resp 17; Temp 97.6; Pulse Ox 95% ; Weight 90.72 kg; Height 5 ft. ll1 5 in. ; Pain 8/10; 14:48 Body Mass Index 33.28 (90.72 kg, 165.1 cm) ll1 14:48 Pain Scale: Adult ll1 ED Course: 14:43 Patient arrived in ED. al6 14:45 Zohaib Leal MD is Attending Physician. rn 14:49 Triage completed. ll1 14:49 Arm band placed on. ll1 15:26 Christal Tierney, JESUS is Primary Nurse. hb 15:34 Patient has correct armband on for positive identification. Call light in reach. hb Provided Education on: medications, follow up. 15:34 No provider procedures requiring assistance completed. Patient did not have IV access hb during this emergency room visit. Administered Medications: 15:33 Drug: MethylPREDNISolone Sodium Succinate IM 125 mg IM once Route: IM; Site: right hb deltoid; 15:34 Follow up: Response: Medication administered at discharge. hb 15:33 Drug: hydrOXYzine PO 50 mg PO once Route: PO; hb 15:34 Follow up: Response: Medication administered at discharge. Medication: 15:34 VIS not applicable for this client. hb Outcome: 15:15 Discharge ordered by . rn 15:34 Discharged to home ambulatory, hb 15:34 Condition: stable 15:34 Discharge instructions given to patient, Instructed on discharge instructions, follow up and referral plans. medication usage, Demonstrated understanding of instructions, follow-up care, medications, Prescriptions given X 2, 15:35 Patient left the ED. hb Signatures: Zohaib Leal MD MD rn Baxter, Heather, RN RN Dieter Salcido RN RN ll1 Tierney Motta6 Corrections: (The following items were deleted from the chart) 14:53 14:48 Resp 17bpm; ll1 ll1
--- NOTE | 2024-07-29 15:16 | EDPHYS ---
Physician Documentation [facility] Name: Daisha Dawkins Age: 49 yrs Sex: Female : 1975 Arrival Date: 07/29/2024 Time: 14:39 Bed 9 Private MD: ED Physician Zohaib Leal HPI: 07/29 14:52 This 49 yrs old Female presents to ER via Ambulatory with complaints of Rash - rn arms,hands and neck. 14:53 Patient reports rash to arms and neck and face for 1 week. Started shortly after rn clearing out a tree with her . Patient states saw some broad leaf wrapped around a tree. Patient reports itching and trying hydrocortisone cream as well as oatmeal creams and nothing is helping. Her 's rash has already gone away. No trouble breathing. Historical: - Allergies: 14:52 No Known Allergies; ll1 - Home Meds: 14:52 None [Active]; ll1 - PMHx: 14:52 None; ll1 - PSHx: 14:52 Cholecystectomy; ll1 - Immunization history:: Adult Immunizations up to date. - Infectious Disease History:: Denies. - Social history:: Smoking status: Patient denies any tobacco usage or history of. - Family history:: not pertinent. - Hospitalizations: : No recent hospitalization is reported. ROS: 14:53 Constitutional: Negative for fever, chills, and weight loss, Cardiovascular: Negative rn for chest pain, palpitations, and edema, Respiratory: Negative for shortness of breath, cough, wheezing, and pleuritic chest pain, Abdomen/GI: Negative for abdominal pain, nausea, vomiting, diarrhea, and constipation, MS/Extremity: Negative for injury and deformity, Skin: Positive for rash and itching Neuro: Negative for headache, weakness, numbness, tingling, and seizure, Exam: 14:53 Constitutional: This is a well developed, well nourished patient who is awake, alert, rn and in no acute distress. Ambulatory to triage without assistance or difficulty ENT: No stridor Skin: Papular and pustular rash to bilateral upper extremities, neck, face with excoriations. No desquamation Vital Signs: 14:48 BP 128 / 88; Pulse 77; Resp 17; Temp 97.6; Pulse Ox 95% ; Weight 90.72 kg; Height 5 ft. ll1 5 in. ; Pain 8/10; 14:48 Body Mass Index 33.28 (90.72 kg, 165.1 cm) ll1 14:48 Pain Scale: Adult ll1 MDM: 14:45 Medical Screening Exam initiated rn 14:53 Differential diagnosis: Contact dermatitis. rn 15:13 Data reviewed: vital signs, nurses notes, and as a result, I will discharge patient. rn Counseling: I had a detailed discussion with the patient and/or guardian regarding the historical points, exam findings, and any diagnostic results supporting the discharge/admit diagnosis, the need for outpatient follow up, to return to the emergency department if symptoms worsen or persist or if there are any questions or concerns that arise at home. Special discussion: I discussed with the patient/guardian in detail that at this point there is no indication for admission to the hospital. It is understood, however, that if the symptoms persist or worsen the patient needs to return immediately for re-evaluation. Administered Medications: 15:33 Drug: MethylPREDNISolone Sodium Succinate IM 125 mg IM once Route: IM; Site: right hb deltoid; 15:34 Follow up: Response: Medication administered at discharge. 15:33 Drug: hydrOXYzine PO 50 mg PO once Route: PO; 15:34 Follow up: Response: Medication administered at discharge. Disposition Summary: 07/29/24 15:15 Discharge Ordered Notes: Location: Home rn Problem: new rn Symptoms: have improved rn Condition: Stable rn Diagnosis - Allergic contact dermatitis due to plants, except food rn Followup: rn - With: Private Physician - When: As needed - Reason: Recheck today's complaints, Re-evaluation by your physician Discharge Instructions: - Contact Dermatitis rn - Poison Bianca Dermatitis rn - Discharge Summary Sheet ll1 Forms: - Medication Reconciliation Form rn - Antibiotic purchasing intern - Prescription Opioid Use rn - Patient Portal Instructions rn - Leadership Thank You Letter rn - Work release form ll1 Prescriptions: - Hydroxyzine HCl 50 mg Oral Tablet - take 1 tablet ORAL route every 8 hours As needed; 20 tablet; Refills: 0, rn Product Selection Permitted - Medrol (Kota) 4 mg Oral Tablets, Dose Pack - take 1 tablet ORAL route as directed - follow package instructions; 1 packet; rn Refills: 0, Product Selection Permitted Signatures: Leal, Zohaib, MD MD rn Tierney, Christal, RN RN hb Abraham, Lynsay, RN RN ll1
[2024-07-29] MEDS ORDERED: METHYLPREDNISOLONE 125 MG INJ ONE (15:26)
[2024-07-29] MEDS ORDERED: hydrOXYzine HCL 25 MG TAB ONE (15:27)
[2024-07-29 16:04] VITALS: TEMP 98.1
[2024-07-29 16:18] VITALS: BP 93/49; O2SAT 96
== END 2024-07-29 15:35 | disposition home or self-care (01) ==
LOC: ER 14:39
DX: L23.7 Allergic contact dermatitis due to plants, except food (principal)
CPT/HCPCS: 96372; 99284; J2919